=== PATIENT | female | born 1965 | race Caucasian/White ===

== ENCOUNTER 2018-04-02 05:58 | Day surgery (SDC) | END 2018-04-02 11:10 | disposition home or self-care (01) ==

== ENCOUNTER 2019-04-02 12:37 | Day surgery (SDC) | payer OTHER ==
[~2019-04-02] VITALS: Ht 154.9 cm; Wt 49.9 kg
[~2019-04-02 12:37] MED LIST: NO HOME MEDS
[2019-04-02 13:17] VITALS: Ht 154.9 cm; Wt 49.9 kg
[2019-04-02 13:41] VITALS: BP 128/77; PULSE 59; RESP 18
[2019-04-02 14:54] VITALS: BP 112/70; RESP 18
[2019-04-02] MEDS ORDERED: FENTAnyl 50 MCG/ML VIAL ONE (15:09)
[2019-04-02] MEDS ORDERED: MIDAZOLAM 1 MG/ML 2 ML INJ ONE (15:09)
== END 2019-04-02 16:22 | disposition home or self-care (01) ==
LOC: GIL 12:37
PROVIDERS: ATTEND Internal Medicine Gastroenterology
DX: R19.5 Other fecal abnormalities (principal); K64.8 Other hemorrhoids
CPT/HCPCS: 45378; J2250; J3010; Z7610